=== PATIENT | female | born 1975 | race Hispanic/Latino ===

== ENCOUNTER 2018-12-14 20:17 | Emergency (ER) | payer MEDICAID ==
[2018-12-14 21:45] LABS: BILIRUBIN,URINE Negative (NEGATIVE); COLOR,URINE Yellow (YELLOW); GLUCOSE, URINE (UA) Negative (NEGATIVE); KETONES,URINE Negative (NEGATIVE); LEUKOCYTE ESTERASE ,URINE Negative (NEGATIVE); NITRATE,URINE Negative (NEGATIVE); OCCULT BLOOD,URINE Negative (NEGATIVE); PROTEIN,URINE Negative (NEGATIVE); UROBILINOGEN,URINE 0.2 mg/dL (0.2-1.0)
[2018-12-14 21:47] LABS: APPEARANCE,URINE CLEAR (CLEAR)
[2018-12-14] MEDS ORDERED: IBUPROFEN 600 MG TABLET ONE (22:49)
== END 2018-12-15 00:36 | disposition home or self-care (01) ==
LOC: EDH 20:17
DX: N92.0 Excessive and frequent menstruation with regular cycle (principal); R10.2 Pelvic and perineal pain; N83.209 Unspecified ovarian cyst, unspecified side; I10 Essential (primary) hypertension; Z98.51 Tubal ligation status; Z72.0 Tobacco use; Z88.8 Allergy status to other drugs, medicaments and biological substances
CPT/HCPCS: 76856; 81003; 81025; 87486; 87797